=== PATIENT | male | born 1955 | race Caucasian/White ===

== ENCOUNTER 2018-02-18 09:16 | Inpatient (IN) | payer OTHER ==
[~2018-02-18] VITALS: Ht 160 cm; Wt 60.3 kg
[2018-02-18 09:17] VITALS: BP 140/91
[2018-02-18 09:35] LABS: URINE BLOOD NEGATIVE (Negative); URINE CLARITY CLEAR; URINE GLUCOSE-RANDOM* NEGATIVE (Negative); URINE KETONES 1+ (Negative); URINE PROTEIN (DIPSTICK) TRACE (Negative); URINE SPECIFIC GRAVITY 1.025 (1.005-1.035); URINE UROBILINOGEN 0.2 E.U./dl (0.2-1.0)
[2018-02-18 09:37] LABS: ICTOTEST (BILI CONFIRMATORY) Negative (Negative); URINE BILIRUBIN NEGATIVE (Negative); URINE COLOR AMBER; URINE LEUKOCYTES-REFLEX TRACE (Negative); URINE NITRITE-REFLEX POSITIVE (Negative)
[2018-02-18 09:49] LABS: ABSOLUTE NEUTROPHILS 5.9 thou/uL (1.4-8.2); BASOPHILS 0.5 % (0.0-2.0); EOSINOPHILS 2.6 % (0.0-3.0); HEMATOCRIT 47.3 % (42.0-52.0); HEMOGLOBIN 17.2 gm/dL (14.0-18.0); LYMPHOCYTES 27.4 % (24.0-44.0); MCH 31.9 pg (26.0-34.0); MCHC 36.3 g/dL (28.0-37.0); MONOCYTES 7.4 % (1.0-8.0); PLATELET COUNT 356 thou/uL (150-400); POLYS 62.1 % (36.0-66.0); RBC 5.38 mil/uL (4.50-6.00); WBC 9.5 thou/uL (4.0-11.0)
[2018-02-18 09:56] LABS: CASTS None Seen /LPF (None Seen); MUCUS 4-6 Moderate strn/LPF (None Seen); SQUAMOUS 0-3 Few /LPF (0-3)
[2018-02-18 09:57] LABS: ANION GAP 11 mmol/L (7-16); BUN 24 mg/dL (7-18); CALCIUM 8.3 mg/dL (8.5-10.1); CHLORIDE 104 mmol/L (98-107); CO2 23 mmol/L (21-32); CREATININE 1.1 mg/dL (0.7-1.3); GLUCOSE 117 mg/dL (74-106); POTASSIUM 3.8 mmol/L (3.5-5.1); SODIUM 138 mmol/L (136-145)
[2018-02-18 09:57] LABS: BACTERIA-REFLEX 1-9 Few /HPF (None Seen); CRYSTALS None Seen /LPF (None Seen); URINE RBC 0-2 Rare /HPF (0-2); URINE WBC-REFLEX 0-5 Rare /HPF (0-5)
[2018-02-18 10:03] LABS: ALBUMIN 2.7 g/dL (3.4-5.0); DIRECT BILIRUBIN < 0.1 mg/dL (<0.1-0.3); LIPASE 118 U/L (73-393); SGOT 21 U/L (15-37); SGPT 19 U/L (30-65); TOTAL BILIRUBIN 0.4 mg/dL (<0.1-1.0)
[2018-02-18 11:38] VITALS: BP 134/87
[2018-02-18 12:56] VITALS: BP 134/87
[2018-02-18 14:45] VITALS: BP 141/54
[2018-02-18 20:00] VITALS: BP 135/83
[2018-02-18 23:47] VITALS: BP 135/83
[2018-02-19 04:30] VITALS: BP 103/57
[2018-02-19 05:29] LABS: HEMATOCRIT 36.7 % (42.0-52.0); MCHC 34.9 g/dL (28.0-37.0); MCV 85.9 fL (80.0-100.0); RBC 4.27 mil/uL (4.50-6.00); RDW 13.3 % (10.5-14.5); WBC 7.1 thou/uL (4.0-11.0)
[2018-02-19 05:45] LABS: HEMOGLOBIN 12.8 gm/dL (14.0-18.0)
[2018-02-19 06:00] LABS: ALBUMIN 1.9 g/dL (3.4-5.0); CALCIUM 7.1 mg/dL (8.5-10.1); CREATININE 0.9 mg/dL (0.7-1.3); POTASSIUM 3.8 mmol/L (3.5-5.1); TOTAL BILIRUBIN 0.4 mg/dL (<0.1-1.0); TOTAL PROTEIN 4.2 g/dL (6.4-8.2)
[2018-02-19 19:56] VITALS: BP 125/74
[2018-02-20 04:35] VITALS: BP 132/81
[2018-02-20 07:58] VITALS: BP 136/86
[2018-02-20] MEDS ORDERED: ZYRTEC10 M5 PO (09:23)
[2018-02-20] MEDS ORDERED: HYDROCODONE-AP1 EAC6 PO (09:23)
[2018-02-20] MEDS ORDERED: KEFLEX500 M1 PO (09:23)
[2018-02-20 09:45] VITALS: BP 136/86
== END 2018-02-20 14:25 | disposition home or self-care (01) | DRG 689 ==
LOC: ER 09:16 → 4E 12:22 → EROBS 12:22 → 4E 14:45 → EROBS 14:48 → 4E 14:48 → ENTRNSPT 02-20 13:39 → EDTRNSPTSTS 02-20 13:42 → 4E 02-20 14:25
PROVIDERS: Nurse Practitioner
DX: N39.0 Urinary tract infection, site not specified (principal); J18.9 Pneumonia, unspecified organism; H66.91 Otitis media, unspecified, right ear; E86.0 Dehydration; R00.0 Tachycardia, unspecified; Z91.02 Food additives allergy status; Z28.21 Immunization not carried out because of patient refusal; Z79.899 Other long term (current) drug therapy
CPT/HCPCS: 10183; 10783